=== PATIENT | female | born 1980 | race Caucasian/White ===

== ENCOUNTER 2017-12-18 18:41 | Inpatient (IN) | payer SELFPAY ==
[2017-12-18 19:56] VITALS: BMI 24.7
[2017-12-18] MEDS ORDERED: Lactated Ringer's 1,000 ML IV SCH (20:00)
[2017-12-18] MEDS ORDERED: Oxytocin 30 UNITS in Sodium Chloride 0.9% 500 ML IV SCH (20:00)
[2017-12-18 20:23] VITALS: O2SAT 100
[2017-12-18 20:27] LABS: BASO % 0.5 % (0.0-2.0); EOS # 0.1 K/uL (0.0-0.7); EOS % 0.9 % (0.0-4.0); HEMOGLOBIN 10.9 g/dL (12.0-16.0); LYMPH # 2.4 K/uL (1.0-4.3); MEAN CELL VOLUME 80.8 fl (81.0-99.0); MEAN CORPUSCULAR HEMOGLOBIN 26.9 pg (27.0-31.0); MEAN CORPUSCULAR HGB CONC 33.3 g/dL (33.0-37.0); MEAN PLATELET VOLUME 9.5 fl (7.2-11.7); MONO # 0.6 K/uL (0.0-0.8); MONO % 6.4 % (0.0-10.0); NEUT # 6.8 K/uL (1.8-7.0); NEUT % 68.2 % (50.0-75.0); NRBC % 0.1 % (0.0-0.0); RBC 4.05 Mil/uL (3.80-5.20)
--- NOTE | 2017-12-18 22:53 | OBADHP ---
Datetime: 12/18/2017 22:42 Admit Comment, IP Provider: 37 y/o @ 38.5 wks GA c/o ctx pain every 5-10 min increasing inte nsity and freuqency since earlier afternoon. Pt reprots some vaginal spotting, dneis any lof, +FM Ante [facility] [place], transfer 3rd trietser, reports normal screening OB: X2 FT uncomplciated largest 7lbs SENIOR CARE ASSISTANT: dneies hx of abnormla pap, fibroids, ovarian cyst, sti PMH: denines PSH: denies FHX: DM, HTN, Luekemia SHX: negative etoh, tobacco.drugs MEDS: PNV, Vitamin D3 NKDA A/P 37y/o @ 38.5 wks GA in labor -admit to L+D -npo, ivf -admission labs -cont toco and efm -analagesia prn Pelvic Type - PN: Adequate Extremities - PN: Normal Abdomen - PN: Normal Back - PN: Normal Breast - PN: Not Done Lungs - PN: Normal Heart - PN: Normal Thyroid - PN: Normal Neurologic - PN: Not Done HEENT - PN: Normal General - PN: Normal Weight - Estimated: 3354 Presentation-Admit: Vertex FHR - Baseline A Provider: 120 Membranes, Provider: Intact Gestation - Est Wks by US: 38.5 IP Hx Assessment: The History has been Reviewed and is Current Vital Signs Provider: Reviewed IP Chief Complaint: Uterine contractions NICHD Variability Prov Fetus A: Moderate 6-25bpm FHR Category Provider Fetus A: Category I NICHD Decel Fetus A IP Provider: None Dilatation, Provider: 4 Effacement, Provider: 50 Station, Provider: -2 Genitourinary Exam: Normal DTRs - PN: Normal EGA AdmitDate IP: 38.5 IP Adm Impression: Term, intrauterine IP Admit Plan: Admit to unit
[2017-12-18] MEDS ORDERED: Oxytocin 30 units/LR 500ML 30 U/500 ML BAG IV ONE (23:03)
[2017-12-18] MEDS ORDERED: Oxytocin 30 UNITS in Sodium Chloride 0.9% 500 ML IV ONE (23:15)
[2017-12-19] MEDS ORDERED: Oxytocin 30 UNITS in Sodium Chloride 0.9% 500 ML IV ONE
[2017-12-19] MEDS ORDERED: Lidocaine 1% Inj (20ml) ONE (01:07)
[2017-12-19] MEDS: Lactated Ringer's 1,000 ML IV SCH ×2 (04:00→04:19)
[2017-12-19] MEDS ORDERED: Fentanyl/Bupivacaine HCl 250 ML EPI ONE (04:34)
--- NOTE | 2017-12-19 05:27 | OBPN ---
Datetime: 12/19/2017 05:24 IP Progress Impression: Normal progression of labor IP Informed Consent Obtain: Vaginal Delivery IP Procedures: Artificial ROM IP Progress Plan: Continue present management Membranes, Provider: Ruptured Amniotic Fluid Color, Provider: Clear Contraction Comments Provider: q 2-3 min FHR - Baseline A Provider: 120 Gestation - Est Wks by US: 38.6 Presentation-Admit: Vertex IP Progress Note Comment: pt seen and examiend c/o pain s/p epidural augmentation wtih cytotec, pitocin VSS EMF: Cat I TOCO: 2-3 min PItic 3mu/min VE: 6/60/-2 AROM clear, vtx A/P 37 y/o @ 38.6 wks GA in active labor -cont current managment Vital Signs Provider: Reviewed; Within Normal Limits FHR Category Provider Fetus A: Category I NICHD Variability Prov Fetus A: Moderate 6-25bpm Dilatation, Provider: 6 Effacement, Provider: 60 Station, Provider: -2 NICHD Decel Fetus A IP Provider: None Datetime: 12/18/2017 22:42 Weight - Estimated: 3354
--- NOTE | 2017-12-19 05:43 | OBPN ---
Datetime: 12/19/2017 05:40 IP Progress Plan: Continue present management Membranes, Provider: Ruptured Contraction Comments Provider: q 2-3 FHR - Baseline A Provider: 120 Gestation - Est Wks by US: 38.6 IP Progress Note Comment: pt with variable decleration afer VE and AROM with loss of contact, pt repositioned to left laterl decubutui, IVH, Oxygen with spotnaneous reutrn to baseline plan cont resusuction cont current managment Vital Signs Provider: Reviewed NICHD Variability Prov Fetus A: Moderate 6-25bpm Dilatation, Provider: 6
[2017-12-19] MEDS ORDERED: Oxycodone/Acetaminophen 5/325 mg Tab PO PRN ×4 (07:24→10:03)
[2017-12-19] MEDS ORDERED: Benzocaine/Menthol SPRAY TOP PRN ×2 (07:24→10:03)
--- NOTE | 2017-12-19 07:25 | OBDS ---
MATERNAL INFORMATION Provider Comments: pt was fully dilated, Category II pushing, verbal cnsent give for vacumn delivery . Atruamtic, spontanous delivery of head, vacum released with 1 pull, tight nuchal x 1 looseend, atum ati, spotnaeous deliery of natier shoulder followed by poserio shoulder followed by deliery of body. both oral and nasal passages of the baby were bulb suctioned. ubmilcs cord was clamped and cut. baby handed to mother on abdmen with rn assistance. Cord bloo and cord gases colelcted ans sent x 2. Spont aneous deliveyr of intact placent with membrnes. 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 LABOR SUMMARY EDC: 12/27/2017 00:00 LABOR INFORMATION Cervical Ripening Agents: Cytotec @ 25mcg buccal MEMBRANES Membranes Rupture Method: Artificial Amniotic Fluid Color: Clear Amniotic Fluid Amount: Moderate ASSISTED DELIVERY BABY A Indication for Assisted Delivery: Category II tracing Catheter Prior to Procedure: Yes Station Vacuum/Forcep Apply: +3 Position Vacuum/Forcep Apply: Left Occipital Anterior Vacuum Number of Pulls: 1 Vacuum Number of PopOffs: 0 Reduce Pressure btwn Ctx: No Vacuum Chief Risk Officer: [place] Total Time Vacuum Applied: 6 seconds Vacuum/Forceps Comment: no complications pediastricin present fo rdleiveyr IDENTIFICATION/MEDS BABY A ID Band Number: [id number] ASSESSMENT BABY A Infant Complications: None Complications Other: none
[2017-12-19] MEDS ORDERED: Oxytocin 30 UNITS in Sodium Chloride 0.9% 500 ML IV SCH (07:30)
[2017-12-19] MEDS ORDERED: Multivitamin With Minerals Tab PO SCH (09:00)
[2017-12-20 06:44] LABS: BASO % 0.2 % (0.0-2.0); EOS # 0.2 K/uL (0.0-0.7); EOS % 1.5 % (0.0-4.0); HEMOGLOBIN 10.2 g/dL (12.0-16.0); LYMPH # 3.3 K/uL (1.0-4.3); LYMPH % 26.3 % (20.0-40.0); MEAN CELL VOLUME 81.6 fl (81.0-99.0); MEAN CORPUSCULAR HEMOGLOBIN 26.8 pg (27.0-31.0); MEAN CORPUSCULAR HGB CONC 32.8 g/dL (33.0-37.0); MEAN PLATELET VOLUME 9.4 fl (7.2-11.7); MONO # 0.7 K/uL (0.0-0.8); MONO % 5.4 % (0.0-10.0); NEUT # 8.3 K/uL (1.8-7.0); NEUT % 66.6 % (50.0-75.0); RBC 3.8 Mil/uL (3.80-5.20); WHITE BLOOD COUNT 12.5 K/uL (4.8-10.8)
[2017-12-20] MEDS: Multivitamin With Minerals Tab PO SCH (10:12)
--- NOTE | 2017-12-20 19:27 | OBPPN ---
Datetime: 12/20/2017 19:24 PP Pain Prov: Within normal limits PP Nausea Prov: Denies PP Flatus Prov: Yes PP BM Prov: No PP Breasts Prov: Normal PP Heart Prov: Normal PP Lungs Prov: Normal PP Abdomen/Uterus Prov: Normal PP Lochia Prov: Normal PP Vulva/Perineum Prov: Normal PP CVA Tenderness Prov: Normal PP Extremities Prov: Normal PP C/S Incision Prov: Not Applicable PP Progress Prov: Normal PP Impression Prov: Normal progression PP Plan Prov: Continue present management PP Progress Note Prov: delayed entry pt seen adn examiend pain contolled, ambitn,g bvoidng, passing fluats, tolerated diet, breat feedi ng dneis fever, chlls, nauevmoitjgn VSS PE see above a/p s/p PPD #1 doing well cont pain mangnet encourage bresat feedign/abaition am lbs reviwed IP PP Procedures: None Vital Signs Provider PP: Reviewed; Within Normal Limits
[2017-12-21] MEDS: Multivitamin With Minerals Tab PO SCH (08:07)
[2017-12-21 18:06] VITALS: BP 118/61; PULSE 76; RESP 20; TEMP 98.2
== END 2017-12-21 13:00 | disposition home or self-care (01) | DRG 775 ==
LOC: H.EROB2 18:41 → H.L&D 20:00 → H.OB/GYN 12-19 10:00
PROVIDERS: ADMIT Obstetrics & Gynecology; ATTEND Obstetrics & Gynecology
PROC: 4A1HXCZ Monitoring of Products of Conception, Cardiac Rate, External Approach (ICD-10-PCS; 2017-12-18)
PROC: 10D07Z6 Extraction of Products of Conception, Vacuum, Via Natural or Artificial Opening (ICD-10-PCS; principal; 2017-12-19)
PROC: 0KQM0ZZ Repair Perineum Muscle, Open Approach (ICD-10-PCS; 2017-12-19)
PROC: 10907ZC Drainage of Amniotic Fluid, Therapeutic from Products of Conception, Via Natural or Artificial Opening (ICD-10-PCS; 2017-12-19)
DX: O69.1XX0 Labor and delivery complicated by cord around neck, with compression, not applicable or unspecified (principal); O70.1 Second degree perineal laceration during delivery; O09.523 Supervision of elderly multigravida, third trimester; Z37.0 Single live birth; Z3A.38 38 weeks gestation of pregnancy